=== PATIENT | female | born 1985 | race Caucasian/White ===

== ENCOUNTER 2018-09-16 20:38 | Inpatient (IN) | payer OTHER ==
[2018-09-16] MEDS ORDERED: traMADol 50 MG TAB PO (21:30)
[2018-09-16] MEDS ORDERED: ACETAMINOPHEN 325 MG TAB PO (21:30)
[2018-09-16] MEDS ORDERED: HYDROCODONE/APAP (5/325) TAB PO (22:00)
[2018-09-16] MEDS ORDERED: OLANZAPINE 5 MG TAB PO (22:00)
[2018-09-16] MEDS: OLANZAPINE 5 MG TAB PO (22:01)
[2018-09-16] MEDS: LACOSAMIDE (100 MG/10 ML PO SYR) PO (22:20)
[2018-09-17] MEDS ORDERED: PANTOPRAZOLE (EC) 40 MG TAB PO (06:00)
[2018-09-17] MEDS ORDERED: DOCUSATE SODIUM 100 MG CAP PO (09:00)
[2018-09-17] MEDS ORDERED: DEXAMETHASONE 1 MG TAB PO (09:00)
[2018-09-17] MEDS ORDERED: OLANZAPINE 5 MG TAB PO (21:00)
== END 2018-09-16 22:37 | disposition left against medical advice (07) | DRG 66 ==
LOC: VRC 20:38
DX: I61.9 Nontraumatic intracerebral hemorrhage, unspecified (principal)